=== PATIENT | female | born 1995 | race Caucasian/White ===

== ENCOUNTER 2017-05-02 13:50 | Emergency (ER) | payer BC, MEDICAID ==
[2017-05-02 14:19] VITALS: BP 110/68
--- NOTE | 2017-05-02 14:35 | UC ---
Lower Extremity/Ankle HPI - HPI Summary HPI Summary: 22 YEAR OLD FEMALE WHO IS 33 WEEKS PRESENTS WITH COMPLAINS SEVERE LEFT FOOT SWELLING - History of Current Complaint Chief Complaint: UCLowerExtremity Stated Complaint: LEFT FOOT COMPLAINT Time Seen by Provider: 05/02/17 14:35 Hx Obtained From: Patient Hx Last Menstrual Period: 04/30/16 Onset/Duration: Sudden Onset Severity Initially: Moderate Severity Currently: Moderate Pain Scale Used: 0-10 Numeric - 5 - Allergies/Home Medications Allergies/Adverse Reactions: Allergies Allergy/AdvReac Type Severity Reaction Status Date / Time No Known Allergies Allergy Verified 05/02/17 14:14 Home Medications: Home Medications Vitamin TAB* 1 tab PO DAILY 05/02/17 [History Confirmed 05/02/17] PMH/Surg Hx/FS Hx/Imm Hx Previously Healthy: Yes - Surgical History Surgical History: None - Family History Known Family History: Negative: Diabetes - Social History Alcohol Use: None Substance Use Type: None Smoking Status (MU): Former Smoker Type: Cigarettes Amount Used/How Often: 1/2 pack daily Length of Time of Smoking/Using Tobacco: 1/2 PPD for 3 Years Have You Smoked in the Last Year: Yes When Did the Patient Quit Smoking/Using Tobacco: September 2016 - Immunization History Most Recent Influenza Vaccination: Not the 2016/2017 Season Most Recent Tetanus Shot: March 2017 Review of Systems Constitutional: Negative Skin: Negative Eyes: Negative ENT: Negative Respiratory: Negative Cardiovascular: Negative Gastrointestinal: Negative Genitourinary: Negative Motor: Negative Neurovascular: Negative Musculoskeletal: Other: - LEFT FOOT SWELLING Neurological: Negative Psychological: Negative All Other Systems Reviewed And Are Negative: Yes Physical Exam Triage Information Reviewed: Yes Vital Signs: Initial Vital Signs Temp 36.9 C 05/02/17 14:12 Pulse 86 05/02/17 14:12 Resp 16 05/02/17 14:12 BP 110/68 05/02/17 14:12 Pulse Ox 100 05/02/17 14:12 Vital Signs Reviewed: Yes Eye Exam: Normal ENT Exam: Normal Dental Exam: Normal Neck exam: Normal Neck: Positive: 1 Respiratory Exam: Normal Cardiovascular Exam: Normal Abdominal Exam: Normal Musculoskeletal Exam: Normal Neurological Exam: Normal Psychological Exam: Normal Skin Exam: Normal Lower Extremity Course/Dx - Differential Dx/Diagnosis Provider Diagnoses: LEFT FOOT SWELLING/PAIN Discharge - Discharge Plan Condition: Stable Disposition: OTHER Discharge Disposition Comment: patient suggested to go to the er Patient Education Materials: Leg Edema (ED) Referrals: Non Staff,Doctor [Medical Doctor] - Additional Instructions: left foot swelling with . patient suggested to go to the er.
== END 2017-05-02 14:46 ==
LOC: UCCORT 13:50
DX: M79.672 Pain in left foot (principal); M79.89 Other specified soft tissue disorders; Z87.891 Personal history of nicotine dependence
CPT/HCPCS: 99212; G0463